=== PATIENT | female | born 1990 | race Caucasian/White ===

== ENCOUNTER 2016-08-18 15:30 | Outpatient (RCR) | payer OTHER | END 2016-08-31 07:58 | disposition home or self-care (01) | LOC: WSPT 15:30 | DX: M41.83 Other forms of scoliosis, cervicothoracic region (principal) | CPT/HCPCS: G8978-GP; G8979-GP ==

== ENCOUNTER → 2016-12-30 | Outpatient (CLI) | payer OTHER | LOC: COL.RAD 11-16 12:36 | DX: R68.81 Early satiety (principal) | CPT/HCPCS: A9541 ==